=== PATIENT | male | born 1980 | race Caucasian/White ===

== ENCOUNTER 2016-06-30 19:12 | Emergency (ER) | payer MEDICAID ==
[~2016-06-30] VITALS: Ht 185.4 cm; Wt 113.4 kg
[~2016-06-30 19:12] MED LIST: ALBU17AE23 IH; ALBU17AE3 IH; AZIT-21 PO; DOXY-182 PO; DOXY100C2 PO; FLT05NA16 NS; GUAI5LIQ3 PO; HYDR-757 PO; IBUP-1780 PO; MULT-633 PO; NAPR500T3 PO; PANT40TA2 PO; PSEU120T16 PO; TAMS0.4C9 PO
--- NOTE | 2016-06-30 19:26 | ED Upper Extremity ---
General Chief Complaint: General Problems/Pain Stated Complaint: LEFT ARM NUMBNESS Nursing Triage Note: PATIENT REPORTS L ARM/NECK PAIN AND NUMBNESS FOR SEVERAL DAYS, DENIES INJURY OR LOSS OF USE. DENIES TAKING MEDICATION FOR PAIN. 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, BUT DID NOT WORK TODAY--STATES HE DID SOME "MAINTENANCE WORK" TODAY SYMPTOMS ARE NO DIFFERENT TODAY IN ANY WAY HAS NOT TAKEN ANYTHING FOR PAIN AT ANY TIME HAS NOT SOUGHT CARE UNTIL TODAY PCP: MIL Allergies and Home Medications Allergies Coded Allergies: Kaila Known Allergies (Unverified Allergy, Unknown, 04/13/06) Home Medications Cyclobenzaprine HCl 10 Mg Tablet, 10 MG PO Q8H, #15 Prescribed by: GAMA LARSEN on 06/30/161955 Methylprednisolone 4 Mg Tab.ds.pk, 4 MG PO UD, #1 Prescribed by: GAMA LARSEN on 06/30/161955 Constitutional: no symptoms reported EENTM: no symptoms reported Respiratory: no symptoms reported Cardiovascular: no symptoms reported Gastrointestinal: no symptoms reported Genitourinary: no symptoms reported Musculoskeletal: see HPI Skin: no symptoms reported Psychiatric/Neurological: See HPI Past Khkspxz-Ndnjjr-Fahsxx Hx Patient Social History Alcohol Use: Occasionally Uses Recreational Drug Use: Yes (THC) Drug of Choice: PAST HX Smoking Status: Current Everyday Smoker (1 PPD) Type Used: Cigarettes Recent Foreign Travel: No Contact w/Someone Who Travel: No Recent Infectious Disease Expo: No Recent Hopitalizations: No Immunizations Up To Date Tetanus Booster (TDap): Less than 5yrs Date of Influenza Vaccine: Nov 06, 2010 Seasonal Allergies Seasonal Allergies: No Surgeries HX Surgeries: Yes (LEFT INGUINAL HERNIA REPAIR) Surgeries: Abdominal, Appendectomy Respiratory Hx Respiratory Disorders: No Cardiovascular Hx Cardiac Disorders: No Neurological Hx Neurological Disorders: No Reproductive System Hx Reproductive Disorders: No Genitourinary Hx Genitourinary Disorders: No Gastrointestinal Hx Gastrointestinal Disorders: Yes (LEFT INGUINAL HERNIA REPAIR) Musculoskeletal Hx Musculoskeletal Disorders: No Endocrine Hx Endocrine Disorders: No HEENT HX ENT Disorders: No Cancer Hx Cancer: No Psychosocial Hx Psychiatric Problems: Yes Behavioral Health Disorders: Bipolar Integumentary HX Skin/Integumentary Disorder: No Blood Transfusions Hx Blood Disorders: No Physical Exam Vital Signs Vital Sign - Last 12Hours 06/30/16 19:16 Temp 98.2 Pulse 91 Resp 18 B/P (MAP) 126/94 Pulse Ox 95 Capillary Refill : Less Than 3 Seconds General Appearance: WD/WN, no apparent distress, other (FREELY USES LEFT ARM AND HAND) HEENT: PERRL/EOMI, normal ENT inspection, TMs normal, pharynx normal Neck: non-tender, full range of motion, supple, normal inspection Cardiovascular: normal peripheral pulses, regular rate, rhythm, no edema, no JVD, no murmur Respiratory: normal breath sounds, no respiratory distress, no accessory muscle use Gastrointestinal: normal bowel sounds, non tender, soft Back: normal inspection, no CVA tenderness, no vertebral tenderness Shoulder: non-tender, no evidence of injury, normal ROM (STATES PAIN IN LEFT SHOULDER WITH ROM, BUT HAS FULL ROM AND NON-TENDER, NO CLICKING/POPPING OR GRINDING. MILD LEFT TRAPEZIUS MUSCLE TENDERNESS. 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, no motor/sensory deficits, alert, normal mood/affect, oriented x 3, No abnormal cerebellar tests Skin: normal color, warm/dry Progress/Results/Core Measures Results/Orders My Orders Orders - GAMA LARSEN DO Ct Cervical Spine Wo (06/30/16 19:21) Shoulder, Left, 3 Views (06/30/16 19:21) Vital Signs/I&O Vital Sign - Last 12Hours 06/30/16 06/30/16 19:16 20:01 Temp 98.2 Pulse 91 75 Resp 18 18 B/P (MAP) 126/94 Pulse Ox 95 98 Blood Pressure Mean: 105 Diagnostic Imaging Comments XRAY LEFT SHOULDER--NO ACUTE PROCESS CT CERVICAL SPINE--VERY EARLY DEGENERATIVE CHANGES OF C4-C5 AND C5-C6, NO ACUTE PROCESS AND NO CANAL STENOSIS PER RADIOLOGIST REPORTS @ 1948 Reviewed: Reviewed by Me Departure Impression Impression: Primary Impression: Left shoulder pain Additional Impressions: Strain of left trapezius muscle Radicular pain in left arm Disposition: HOME, SELF-CARE Condition: Stable Departure-Patient Inst. Referrals: [facility] (PCP/Family) Primary Care Physician Patient Instructions: Cervical Muscle Strain (DC), Muscle Strain (DC), Muscle and Bone Pain (DC), Radiculopathy (DC) Add. Discharge Instructions: MOIST HEAT TO AREA AT 20 MINUTE INTERVALS FOLLOW UP WITH [facility] NEXT WEEK FOR FURTHER CARE All discharge instructions reviewed with patient and/or family. Voiced understanding. Scripts Cyclobenzaprine HCl (Cyclobenzaprine HCl) 10 Mg Tablet 10 MG PO Q8H, #15 TAB Prov: GAMA LARSEN DO 06/30/16 Methylprednisolone (Medrol) 4 Mg Tab.ds.pk 4 MG PO UD, #1 PKG Prov: GAMA LARSEN DO 06/30/16 GAMA LARSEN DO June 30, 2016 19:26
--- NOTE | 2016-06-30 19:40 | Diagnostic Imaging Report ---
PROCEDURE: CT cervical spine without contrast. TECHNIQUE: Multiple contiguous axial images were obtained through the cervical spine without the use of intravenous contrast. Sagittal and coronal reformations were then performed. INDICATION: Left-sided neck and shoulder pain for five days. COMPARISON: None. DISCUSSION: No acute fracture or subluxation. Alignment is anatomic. Early degenerative disc disease is noted at the C3-C4 and C4-C5 levels. There is no severe central canal or neuroforaminal stenosis identified at any level on this non contrast exam. The visualized paraspinal soft tissues are unremarkable. IMPRESSION: 1. Very early degenerative changes are noted within the cervical spine. No acute osseous abnormality identified. Dictated by: Dictated on workstation # [id number]
--- NOTE | 2016-06-30 19:40 | Diagnostic Imaging Report ---
Indication: Left shoulder pain for 5 days. Discussion: Three views of the left shoulder were obtained, no comparison. No acute fracture, dislocation, or other osseous abnormality identified. No significant degenerative disease. Alignment is anatomic. Soft tissues are unremarkable. Impression: 1. Negative left shoulder. Dictated by: Dictated on workstation # [id number]
[2016-06-30] MEDS ORDERED: METH4TAB PO (19:56)
[2016-06-30] MEDS ORDERED: CYCL10TA9 PO (19:56)
[2016-06-30 20:01] VITALS: BP 124/72
== END 2016-06-30 20:00 | disposition home or self-care (01) ==
LOC: EDUNIT# 19:12 → ER 19:14
DX: S46.812A Strain of other muscles, fascia and tendons at shoulder and upper arm level, left arm, initial encounter (principal); M47.22 Other spondylosis with radiculopathy, cervical region; F17.210 Nicotine dependence, cigarettes, uncomplicated; X58.XXXA Exposure to other specified factors, initial encounter; Y99.8 Other external cause status
CPT/HCPCS: 72125; 73030; 99281

== ENCOUNTER 2016-08-29 20:43 | Emergency (ER) | payer MEDICAID ==
[~2016-08-29] VITALS: Ht 190.5 cm; Wt 113.4 kg
[~2016-08-29 20:43] MED LIST changes: +CYCL10TA9 PO; +METH4TAB PO
[2016-08-29] MEDS ORDERED: NS IV 1000 ML 1,000 ML IV ONE (21:56)
--- NOTE | 2016-08-29 21:56 | ED General ---
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 DENIES N/V, DOES REPORT ONSET DIARRHEA THIS AM. NO OTHER C/O VOICED Nursing Sepsis Screen: No Definite Risk Source of Information: Patient Exam Limitations: No Limitations History of Present Illness Time Seen by Provider: 21:51 Initial Comments Patient reports the ER by private conveyance with chief complaint of feeling dizzy lightheaded and having a little more cough that is nonproductive as well as shortness of breath. He does smoke pack a day. He remarks she is now working in the heat all day. He says she's been drinking plenty of water but felt a little out of it. He has not had any fevers or chills. He does not have any falls or syncope. No chest pain or history of heart disease. No blood pressure problems or diabetes. No thyroid issues. No family who had a heart attack for the age of 40. She is having problems with urinating or rash. He does remark at a tick pulled off of him this morning on the back of his right thigh. Allergies and Home Medications Allergies Coded Allergies: NKANo Known Allergies (Unverified Allergy, Unknown, 04/13/06) Home Medications Cyclobenzaprine HCl 10 Mg Tablet, 10 MG PO Q8H, #15 Prescribed by: GAMA LARSEN on 06/30/161955 Methylprednisolone 4 Mg Tab.ds.pk, 4 MG PO UD, #1 Prescribed by: GAMA LARSEN on 06/30/161955 Constitutional: see HPI, No chills, No diaphoresis, dizziness, No fever, malaise EENTM: No ear pain, No eye pain Respiratory: see HPI, cough, short of breath, No wheezing Cardiovascular: No chest pain, No edema, No Hx of Intervention, No palpitations , No syncope, No vascular heart diseas Gastrointestinal: No abdominal pain, No diarrhea, No nausea Genitourinary: No discharge, No dysuria Skin: No pruritus, No rash Psychiatric/Neurological: Denies Headache, Denies Numbness Past Ocrfoah-Phdjpv-Bokaar Hx Patient Social History Alcohol Use: Denies Use Recreational Drug Use: No Drug of Choice: PAST HX Smoking Status: Current Everyday Smoker Type Used: Cigarettes Recent Foreign Travel: No Contact w/Someone Who Travel: No Recent Infectious Disease Expo: No Recent Hopitalizations: No Immunizations Up To Date Tetanus Booster (TDap): Less than 5yrs Date of Influenza Vaccine: Nov 06, 2010 Seasonal Allergies Seasonal Allergies: No Surgeries HX Surgeries: Yes (LEFT INGUINAL HERNIA REPAIR) Surgeries: Abdominal, Appendectomy, Vasectomy Respiratory Hx Respiratory Disorders: No Cardiovascular Hx Cardiac Disorders: No Neurological Hx Neurological Disorders: No Reproductive System Hx Reproductive Disorders: No Genitourinary Hx Genitourinary Disorders: No Gastrointestinal Hx Gastrointestinal Disorders: Yes (LEFT INGUINAL HERNIA REPAIR) Musculoskeletal Hx Musculoskeletal Disorders: No Endocrine Hx Endocrine Disorders: No HEENT HX ENT Disorders: No Cancer Hx Cancer: No Psychosocial Hx Psychiatric Problems: Yes Behavioral Health Disorders: Bipolar Integumentary HX Skin/Integumentary Disorder: No Blood Transfusions Hx Blood Disorders: No Physical Exam Vital Signs Vital Sign - Last 12Hours 08/29/16 20:51 Temp 98.5 Pulse 92 Resp 20 B/P (MAP) 119/82 Pulse Ox 99 O2 Delivery Room Air Capillary Refill : Less Than 3 Seconds General Appearance: No Apparent Distress, WD/WN Eyes: Bilateral Eye EOMI, Bilateral Eye Normal Inspection, Bilateral Eye PERRL HEENT: PERRL/EOMI, TMs Normal, Pharynx Normal Respiratory: Lungs Clear, Normal Breath Sounds Cardiovascular: Regular Rate, Rhythm, Normal Peripheral Pulses Gastrointestinal: Normal Bowel Sounds, Non Tender, Soft Extremity: Normal Capillary Refill, No Pedal Edema Neurologic/Psychiatric: Alert, Oriented x3, No Motor/Sensory Deficits, human resources advisor II- XII Norm as Tested, Other Skin: Normal Color, Warm/Dry (mildly anxious mood) Progress/Results/Core Measures Results/Orders Lab Results Laboratory Tests Test 08/29/16 22:05 Range/Units White Blood Count 6.8 4.3-11.0 10^3/uL Red Blood Count 5.16 4.35-5.85 10^6/uL Hemoglobin 15.1 13.3-17.7 G/DL Hematocrit 44 40-54 % Mean Corpuscular Volume 85 80-99 FL Mean Corpuscular Hemoglobin 29 25-34 PG Mean Corpuscular Hemoglobin Concent 34 32-36 G/DL Red Cell Distribution Width 13.0 10.0-14.5 % Platelet Count 186 130-400 10^3/uL Mean Platelet Volume 11.7 H 7.4-10.4 FL Neutrophils (%) (Auto) 52 42-75 % Lymphocytes (%) (Auto) 36 12-44 % Monocytes (%) (Auto) 11 0-12 % Eosinophils (%) (Auto) 2 0-10 % Basophils (%) (Auto) 0 0-10 % Neutrophils # (Auto) 3.5 1.8-7.8 X 10^3 Lymphocytes # (Auto) 2.4 1.0-4.0 X 10^3 Monocytes # (Auto) 0.7 0.0-1.0 X 10^3 Eosinophils # (Auto) 0.1 0.0-0.3 10^3/uL Basophils # (Auto) 0.0 0.0-0.1 10^3/uL Sodium Level 140 135-145 MMOL/L Potassium Level 4.2 3.6-5.0 MMOL/L Chloride Level 106 98-107 MMOL/L Carbon Dioxide Level 21 21-32 MMOL/L Anion Gap 13 5-14 MMOL/L Blood Urea Nitrogen 15 7-18 MG/DL Creatinine 1.09 0.60-1.30 MG/DL Estimat Glomerular Filtration Rate > 60 BUN/Creatinine Ratio 14 Glucose Level 88 70-105 MG/DL Calcium Level 9.4 8.5-10.1 MG/DL Total Bilirubin 0.6 0.1-1.0 MG/DL Aspartate Amino Transf (AST/SGOT) 22 5-34 U/L Alanine Aminotransferase (ALT/SGPT) 22 0-55 U/L Alkaline Phosphatase 51 40-136 U/L C-Reactive Protein High Sensitivity 0.36 0.00-0.50 MG/DL Total Protein 7.6 6.4-8.2 GM/DL Albumin 4.5 3.2-4.5 GM/DL My Orders Orders - POLINA ESQUIVEL Cbc With Automated Diff (08/29/16 21:56) Comprehensive Metabolic Panel (08/29/16 21:56) Hs C Reactive Protein (08/29/16 21:56) Chest Pa/Lat (2 View) (08/29/16 21:56) Saline Lock/Iv-Start (08/29/16 21:56) Ns Iv 1000 Ml (Sodium Chloride 0.9%) (08/29/16 21:56) Albuterol/Ipra Inhalation Soln (Duoneb I (08/29/16 22:00) Svn Sm Volume Nebulizer Rt-Rfs (08/29/16 21:56) Medications Given in ED Current Medications Medications Dose Ordered Sig/Pradeep Route Start Time Stop Time Status Last Admin Dose Admin Albuterol/ Ipratropium 3 ml ONCE ONCE INH 08/29/16 22:00 08/29/16 22:01 DC 08/29/16 22:26 3 ML Sodium Chloride 1,000 ml @ 0 mls/hr Q0M ONCE IV 08/29/16 21:56 08/29/16 21:59 DC 08/29/16 22:06 1,000 MLS/HR Vital Signs/I&O Vital Sign - Last 12Hours 08/29/16 08/29/16 20:51 22:26 Temp 98.5 Pulse 92 Resp 20 B/P (MAP) 119/82 Pulse Ox 99 O2 Delivery Room Air Room Air Blood Pressure Mean: 94 Diagnostic Imaging Diagonstic Imaging: Xray Plain Films/CT/US/NM/MRI: chest Comments No acute cardio pulmonary processes noted. Reviewed: Reviewed by Me Departure Impression Impression: Primary Impression: Dehydration Additional Impression: Dizziness Disposition: 01 HOME, SELF-CARE Condition: Improved Departure-Patient Inst. Decision time for Depature: 22:57 Referrals: [facility] (PCP/Family) Primary Care Physician Patient Instructions: Dehydration, Adult (DC) Add. Discharge Instructions: Drink plenty of fluids to include things like half strength Gatorade or water. Take it easy the next day or 2 and try stay indoors as much as possible. Wear long sleeves and a hat to stay out of the sun. If you're not feeling better in the next day or 2 you should follow up with your primary care physician. All discharge instructions reviewed with patient and/or family. Voiced understanding. Copy Copies To 1: CHRISTIAN SEPULVEDA TITUS J Aug 29, 2016 21:56
[2016-08-29] MEDS ORDERED: RT-ALBUTEROL/IPRATROPIUM 3 ML (DUONEB) VIAL INH ONE (22:00)
[2016-08-29 22:10] LABS: BASOPHILS % (AUTO) 0 % (0-10); EOSINOPHILS # (AUTO) 0.1 10^3/uL (0.0-0.3); EOSINOPHILS % (AUTO) 2 % (0-10); LYMPHOCYTES # (AUTO) 2.4 X 10^3 (1.0-4.0); LYMPHOCYTES % (AUTO) 36 % (12-44); MEAN CORPUSCULAR HEMOGLOBIN 29 PG (25-34); MEAN CORPUSCULAR HGB CONC 34 G/DL (32-36); MEAN CORPUSCULAR VOLUME 85 FL (80-99); MEAN PLATELET VOLUME 11.7 FL (7.4-10.4); MONOCYTES # (AUTO) 0.7 X 10^3 (0.0-1.0); MONOCYTES % (AUTO) 11 % (0-12); NEUTROPHILS # (AUTO) 3.5 X 10^3 (1.8-7.8); NEUTROPHILS % (AUTO) 52 % (42-75); PLATELET COUNT 186 10^3/uL (130-400); RED BLOOD COUNT 5.16 10^6/uL (4.35-5.85); WHITE BLOOD COUNT 6.8 10^3/uL (4.3-11.0)
[2016-08-29 22:45] LABS: ALANINE AMINOTRANSFERASE 22 U/L (0-55); ALBUMIN 4.5 GM/DL (3.2-4.5); ANION GAP 13 MMOL/L (5-14); ASPARTATE AMINO TRANSFERASE 22 U/L (5-34); BILIRUBIN,TOTAL 0.6 MG/DL (0.1-1.0); BLOOD UREA NITROGEN 15 MG/DL (7-18); BUN/CREATININE RATIO 14; CALCIUM 9.4 MG/DL (8.5-10.1); CARBON DIOXIDE 21 MMOL/L (21-32); CHLORIDE 106 MMOL/L (98-107); CREATININE SERUM 1.09 MG/DL (0.60-1.30); GFR ESTIMATED > 60; GLUCOSE 88 MG/DL (70-105); POTASSIUM 4.2 MMOL/L (3.6-5.0); SODIUM 140 MMOL/L (135-145); TOTAL PROTEIN 7.6 GM/DL (6.4-8.2); hs C REACTIVE PROTEIN 0.36 MG/DL (0.00-0.50)
[2016-08-29 23:06] VITALS: BP 123/79
--- NOTE | 2016-08-30 08:13 | Diagnostic Imaging Report ---
PA and lateral views of the chest Indication: Shortness of breath Findings: The lungs are clear. The heart size is normal. There is no effusion or pneumothorax The mediastinum and ladan appear unremarkable. Impression: Unremarkable study. Dictated by: Dictated on workstation # [id number]
== END 2016-08-29 23:06 | disposition home or self-care (01) ==
LOC: EDUNIT# 20:43 → ER 20:44
DX: E86.0 Dehydration (principal); F31.9 Bipolar disorder, unspecified; F17.210 Nicotine dependence, cigarettes, uncomplicated; Z98.890 Other specified postprocedural states; Z90.49 Acquired absence of other specified parts of digestive tract; Z98.52 Vasectomy status
CPT/HCPCS: 36415; 71020; 80053; 85025; 86141; 94640; 96360

== ENCOUNTER 2016-10-11 20:58 | Emergency (ER) | payer MEDICAID ==
[~2016-10-11] VITALS: Ht 185.4 cm; Wt 108.9 kg
--- OUTSIDE RECORDS SUMMARY | 2016-10-11 21:05 | XMS REPORT ---
Author Author CHARLEE Haas Organization [facility] Address [address] [place] [address] Care Team Providers Care Speech Lang Path Therapist Name Role Phone CHARLEE Haas Unavailable PROBLEMS Type Condition ICD9-CM Code [id number] Code Onset Dates Condition Status SNOMED Code Problem Abdominal pain, left lower quadrant 789.04 Active 864408708 Problem Seasonal allergic rhinitis due to pollen J30.1 Active 34175954 Problem Bipolar 1 disorder, manic, mild F31.11 Active 46632512 Problem Acute upper respiratory infections of unspecified site 465.9 Active 66113439 Problem Cough 786.2 Active 74759284 Problem Panic disorder F41.0 Active 719113813 Problem Environmental allergies Z91.09 Active 134224748 ALLERGIES Substance Reaction Event Type Date Status N.K.D.A. Unknown Non Drug Allergy Feb, Unknown SOCIAL HISTORY No smoking Hx information available PLAN OF CARE Activity Details Follow Up 4 Weeks Reason: VITAL SIGNS Height 74.2 in 2016-02-19 Weight 256.0 lbs 2016-02-19 Heart Rate 92 bpm 2016-02-19 Respiratory Rate 20 2016-02-19 BMI 32.69 kg/m2 2016-02-19 Blood pressure systolic 120 mmHg 2016-02-19 Blood pressure diastolic 72 mmHg 2016-02-19 MEDICATIONS Medication Instructions Dosage Frequency Start Date End Date Duration Status Saphris 5 mg Sublingual at bedtime 1 tablet under the tongue and allow to dissolve Feb, 30 day(s) Active RESULTS No Results PROCEDURES Procedure Date Ordered Related Diagnosis Body Site MH Office Visit, Est Pt., Level 5 Feb 19, 2016 IMMUNIZATIONS No Known Immunizations
--- OUTSIDE RECORDS SUMMARY | 2016-10-11 21:05 | XMS REPORT ---
Author Author ZULEYMA ELDRIDGE Organization [facility] Address [address] [place] [address] Care Team Providers Care Acupuncturist Name Role Phone ZULEYMA ELDRIDGE Unavailable PROBLEMS Type Condition ICD9-CM Code [id number] Code Onset Dates Condition Status SNOMED Code Problem Abdominal pain, left lower quadrant 789.04 Active 530217824 Problem Seasonal allergic rhinitis due to pollen J30.1 Active 58503313 Problem Bipolar 1 disorder, manic, mild F31.11 Active 65533281 Problem Acute upper respiratory infections of unspecified site 465.9 Active 15753572 Problem Cough 786.2 Active 83897569 Problem Panic disorder F41.0 Active 619520949 Problem Environmental allergies Z91.09 Active 503672922 ALLERGIES No Known Allergies SOCIAL HISTORY No smoking Hx information available PLAN OF CARE Activity Details Follow Up Next available Reason:anxiety VITAL SIGNS MEDICATIONS No Known Medications RESULTS No Results PROCEDURES Procedure Date Ordered Related Diagnosis Body Site Psychotherapy, patient &/family, 30 minutes, established patient Feb 19, 2016 IMMUNIZATIONS No Known Immunizations
--- OUTSIDE RECORDS SUMMARY | 2016-10-11 21:05 | XMS REPORT ---
Author Author ZULEYMA ELDRIDGE Organization [facility] Address [address] [place] [address] Care Team Providers Care Photographer Apprentice Name Role Phone ZULEYMA ELDRIDGE Unavailable PROBLEMS Type Condition ICD9-CM Code [id number] Code Onset Dates Condition Status SNOMED Code Problem Cough 786.2 Active 55977445 Problem Seasonal allergic rhinitis due to pollen J30.1 Active 65155108 Problem Bipolar 1 disorder, manic, mild F31.11 Active 30117291 Problem Abdominal pain, left lower quadrant 789.04 Active 104305272 Problem Acute upper respiratory infections of unspecified site 465.9 Active 37432252 Problem Panic disorder F41.0 Active 737547751 Problem Environmental allergies Z91.09 Active 737157332 ALLERGIES No Known Allergies SOCIAL HISTORY No smoking Hx information available PLAN OF CARE Activity Details Follow Up next available Reason:anxiety VITAL SIGNS MEDICATIONS No Known Medications RESULTS No Results PROCEDURES Procedure Date Ordered Related Diagnosis Body Site Psychotherapy, patient &/family, 45 minutes, established patient Feb 03, 2016 IMMUNIZATIONS No Known Immunizations
--- OUTSIDE RECORDS SUMMARY | 2016-10-11 21:05 | XMS REPORT ---
Author Author BERNICE ANDERS Organization [facility] Address [address] [place] [address] Care Team Providers Care Import/Export Agent Name Role Phone BERNICE ANDERS Unavailable PROBLEMS Type Condition ICD9-CM Code YQU01-DL Code Onset Dates Condition Status SNOMED Code Problem Abdominal pain, left lower quadrant 789.04 Active 619471769 Problem Seasonal allergic rhinitis due to pollen J30.1 Active 72589049 Problem Bipolar 1 disorder, manic, mild F31.11 Active 12522285 Problem Acute upper respiratory infections of unspecified site 465.9 Active 23360064 Problem Cough 786.2 Active 56595876 Problem Panic disorder F41.0 Active 138914245 Problem Environmental allergies Z91.09 Active 621187483 ALLERGIES No Known Allergies SOCIAL HISTORY No smoking Hx information available PLAN OF CARE Activity Details Follow Up prn Reason: VITAL SIGNS MEDICATIONS No Known Medications RESULTS No Results PROCEDURES Procedure Date Ordered Related Diagnosis Body Site ALCOHOL AND/OR DRUG ASSESSMENT Feb 03, 2016 IMMUNIZATIONS No Known Immunizations
--- OUTSIDE RECORDS SUMMARY | 2016-10-11 21:06 | XMS REPORT ---
Author Author MARTINEZ RASMUSSEN [facility] Address [address] [place] [address] Care Team Providers Care Supervisor Post Wave Name Role Phone MARTINEZ RASMUSSEN Unavailable PROBLEMS Type Condition ICD9-CM Code NEM55-RC Code Onset Dates Condition Status SNOMED Code Problem Cough 786.2 Active 97965472 Problem Seasonal allergic rhinitis due to pollen J30.1 Active 08315670 Problem Bipolar 1 disorder, manic, mild F31.11 Active 36181546 Problem Abdominal pain, left lower quadrant 789.04 Active 035557695 Problem Acute upper respiratory infections of unspecified site 465.9 Active 86764416 Problem Panic disorder F41.0 Active 306042122 Problem Environmental allergies Z91.09 Active 086215471 ALLERGIES Substance Reaction Event Type Date Status N.K.D.A. Unknown Non Drug Allergy Jan, Unknown SOCIAL HISTORY No smoking Hx information available PLAN OF CARE VITAL SIGNS Height 75 in 2016-01-25 Weight 250.9 lbs 2016-01-25 Temperature 97.9 degrees Fahrenheit 2016-01-25 Heart Rate 80 bpm 2016-01-25 Respiratory Rate 18 2016-01-25 BMI 31.36 kg/m2 2016-01-25 Blood pressure systolic 132 mmHg 2016-01-25 Blood pressure diastolic 92 mmHg 2016-01-25 MEDICATIONS Medication Instructions Dosage Frequency Start Date End Date Duration Status Nicoderm CQ 21 MG/24HR Transdermal Once a day 1 patch to skin 24h Jan, Feb, 30 day(s) Active RESULTS No Results PROCEDURES Procedure Date Ordered Related Diagnosis Body Site Office Visit, Est Pt., Level 3 Jan 25, 2016 IMMUNIZATIONS No Known Immunizations
[2016-10-11] MEDS ORDERED: CYCL5TAB PO (22:53)
[2016-10-11] MEDS ORDERED: PRD20T PO (22:53)
--- NOTE | 2016-10-11 22:53 | ED Upper Extremity ---
General Chief Complaint: Upper Extremity Stated Complaint: LT ARM/FACE NUMBNESS Nursing Triage Note: c/o L arm pain and numbness that radiates down from his neck, patient reports having same problem and being evaluated here previously Nursing Sepsis Screen: No Definite Risk Source: patient Exam Limitations: no limitations History of Present Illness Time seen by provider: 22:50 Initial Comments To ER with pain down his left neck and down his left arm terminating in the fingertips. This is a shooting tingling pain that occasionally gets very bad. He's had this before but this particular episode started just a few hours ago while he was grocery shopping. Onset: this evening Severity: moderate Pain/Injury Location: left other (neck) Modifying Factors: Worse With Movement Allergies and Home Medications Allergies Coded Allergies: ADAMSANo Known Allergies (Unverified Allergy, Unknown, 04/13/06) Home Medications Cyclobenzaprine HCl 10 Mg Tablet, 10 MG PO Q8H, #15 Prescribed by: GAMA LARSEN on 06/30/161955 Methylprednisolone 4 Mg Tab.ds.pk, 4 MG PO UD, #1 Prescribed by: GAMA LARSEN on 06/30/161955 Constitutional: see HPI EENTM: see HPI Respiratory: no symptoms reported Cardiovascular: no symptoms reported Genitourinary: no symptoms reported Musculoskeletal: see HPI Skin: no symptoms reported Psychiatric/Neurological: No Symptoms Reported Past Tpgqgtn-Rkljpf-Yhfpzl Hx Patient Social History Alcohol Use: Denies Use Recreational Drug Use: No Drug of Choice: PAST HX Type Used: Electronic/Vapor Recent Foreign Travel: No Contact w/Someone Who Travel: No Recent Infectious Disease Expo: No Recent Hopitalizations: No Immunizations Up To Date Tetanus Booster (TDap): Less than 5yrs Date of Influenza Vaccine: Nov 06, 2010 Seasonal Allergies Seasonal Allergies: No Surgeries History of Surgeries: Yes (LEFT INGUINAL HERNIA REPAIR) Surgeries: Abdominal, Appendectomy, Vasectomy Respiratory History of Respiratory Disorde: No Cardiovascular History of Cardiac Disorders: No Neurological History of Neurological Disord: No Reproductive System Hx Reproductive Disorders: No Gastrointestinal History of Gastrointestinal Di: No Musculoskeletal History of Musculoskeletal Dis: No Endocrine History of Endocrine Disorders: No Cancer History of Cancer: No Psychosocial History of Psychiatric Problem: Yes Behavioral Health Disorders: Bipolar Integumentary History of Skin or Integumenta: No Blood Transfusions History of Blood Disorders: No Physical Exam Vital Signs Vital Sign - Last 12Hours 10/11/16 22:41 Temp 98.2 Pulse 72 Resp 18 B/P (MAP) 100/77 Pulse Ox 99 Capillary Refill : Less Than 3 Seconds General Appearance: WD/WN, no apparent distress HEENT: PERRL/EOMI, normal ENT inspection Neck: non-tender, full range of motion Respiratory: normal breath sounds, no respiratory distress, no accessory muscle use Gastrointestinal: normal bowel sounds, non tender, soft Shoulder: normal inspection, non-tender Elbow/Forearm: normal inspection, non-tender, Left Wrist: Yes normal inspection, Yes non-tender Neurologic/Tendon: normal sensation, normal motor functions, normal tendon functions Neurologic/Psychiatric: alert, normal mood/affect, oriented x 3 Skin: normal color, warm/dry Progress/Results/Core Measures Results/Orders My Orders Orders - AMANDA LACEY APRN Hydrocodone/Apap 5/325 Tablet (Lortab 5 (10/11/16 23:00) Vital Signs/I&O Vital Sign - Last 12Hours 10/11/16 22:41 Temp 98.2 Pulse 72 Resp 18 B/P (MAP) 100/77 Pulse Ox 99 Blood Pressure Mean: 85 Departure Impression Impression: Primary Impression: Cervical radiculopathy Disposition: 01 HOME, SELF-CARE Condition: Stable Departure-Patient Inst. Decision time for Depature: 22:51 Referrals: [facility] (PCP/Family) Primary Care Physician Patient Instructions: Radiculopathy Add. Discharge Instructions: 1. This is most likely a bulging disc in the neck. Follow-up with your regular doctor later this week or next week for further evaluation. Take steroids and muscle relaxers as directed All discharge instructions reviewed with patient and/or family. Voiced understanding. Scripts Prednisone (Prednisone) 20 Mg Tab 40 MG PO DAILY, #8 TAB Prov: AMANDA LACEY APRN 10/11/16 Cyclobenzaprine HCl (Cyclobenzaprine HCl) 5 Mg Tablet 5 MG PO TID Y for PAIN-MODERATE, #30 TAB Prov: AMANDA LACEY APRN 10/11/16 AMANDA LACEY APRN Oct 11, 2016 22:53
[2016-10-11 23:00] VITALS: BP 100/77
[2016-10-11] MEDS ORDERED: HYDROcodone/APAP 5 MG/325 MG (LORTAB) TAB PO ONE (23:00)
== END 2016-10-11 22:59 | disposition home or self-care (01) ==
LOC: EDUNIT# 20:58 → ER 21:00
DX: M54.12 Radiculopathy, cervical region (principal); F31.9 Bipolar disorder, unspecified; Z90.49 Acquired absence of other specified parts of digestive tract; Z98.52 Vasectomy status
CPT/HCPCS: 99283

== ENCOUNTER 2019-04-07 19:10 | Emergency (ER) | payer MEDICAID ==
[~2019-04-07] VITALS: Ht 190.5 cm; Wt 137.4 kg
[~2019-04-07 19:10] MED LIST changes: +CYCL5TAB PO; +NAPR-915 PO; -NAPR500T3 PO; +PRD20T PO
--- NOTE | 2019-04-07 20:05 | ED Lower Extremity ---
General Chief Complaint: Lower Extremity Stated Complaint: R FOOT PAIN Nursing Triage Note: AMBULATORY TO ROOM 8 WITH C/O RIGHT ANKLE PAIN AND SWELLING. STATES HE WAS HIKING YESTERDAY AND FELL AND THOUGHT HE HEARD A TREE BRANCH SNAP, BUT STATES "I THINK IT MAY HAVE BEEN MY ANKLE NOW AND NOT A BRANCH NOW THAT MY ANKLE IS SWOLLEN". DENIES LOC, DENIES ANY OTHER INJURIES. 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 Nursing Sepsis Screen: No Definite Risk (ARMEN GARAY) History of Present Illness Date Seen by Provider: Apr 07, 2019 Time Seen by Provider: 19:00 Initial Comments This is a 39 y/o male who presents to the ED w/ R foot pain which onset yesterday while he was hiking. States he was walking his 's and daughter's bike when he lost his balance and fell with his right foot getting wedged in between the two bikes. Denies rolling his ankle. He does have mild swelling over right ankle; reports he does get spontaneous swelling in R ankle intermittently but that this time it is worse. Denies any tenderness over medial or later malleoli, or over lateral foot. States the pain is mainly focused over R great toe and is exacerbated by wt bearing; he admits he is able to take 4 steps w/o assistance but that it's very painful. Rates his pain 3/10 when sitting and 6/10 with wt bearing. Reports he hikes regularly, hiked for 1.5hrs yesterday which is normal for him; denies any recent change in his footwear. Denies any other sx. Denies any known PMH or taking any medications. Onset: yesterday Severity: moderate Pain/Injury Location: right foot Method of Injury: fell Modifying Factors: Improves With Immobilization, Improves With Movement, Improves With Rest, Improves With Other (wt bearing) (ARMEN GARAY) Allergies and Home Medications Allergies Coded Allergies: NKANo Known Allergies (Unverified Allergy, Unknown, 04/13/06) Home Medications Cyclobenzaprine HCl 10 Mg Tablet, 10 MG PO Q8H Prescribed by: GAMA LARSEN on 06/30/161955 Cyclobenzaprine HCl 5 Mg Tablet, 5 MG PO TID PRN for PAIN-MODERATE Prescribed by: AMANDA LACEY on 10/11/162252 Methylprednisolone 4 Mg Tab.ds.pk, 4 MG PO UD Prescribed by: GAMA LARSEN on 06/30/161955 Prednisone 20 Mg Tab, 40 MG PO DAILY Prescribed by: AMANDA LACEY on 10/11/162252 Patient Home Medication List Home Medication List Reviewed: Yes (THERESA BERMUDEZ) Review of Systems Constitutional: No chills, No fever EENTM: no symptoms reported Respiratory: no symptoms reported Cardiovascular: no symptoms reported Gastrointestinal: no symptoms reported Musculoskeletal: No back pain; other (R foot pain, mild R ankle swelling) Skin: No lesions, No pruritus, No rash (VIVIAN GARAY [facility]) All Other Systems Reviewed Negative Unless Noted: Yes (THERESA BERMUDEZ) Past Ebyumfm-Rftkge-Srkkbe Hx Past Med/Social Hx: Reviewed Nursing Past Med/Soc Hx (THERESA BERMUDEZ) Patient Social History Alcohol Use: Regular Use Number of Drinks Today: 0 Alcohol Beverage of Choice: Beer Recreational Drug Use: No Drug of Choice: PAST HX Type Used: Electronic/Vapor Recent Foreign Travel: No Contact w/Someone Who Travel: No Recent Infectious Disease Expo: No Recent Hopitalizations: No Physical Abuse: No Sexual Abuse: No Mistreated: No Fear: No (LIONEL GARAYZINA [facility]) Immunizations Up To Date Tetanus Booster (TDap): Less than 5yrs Date of Influenza Vaccine: Nov 06, 2010 (LIONEL GARAYZINA [facility]) Seasonal Allergies Seasonal Allergies: No (LIONEL GARAYZINA [facility]) Past Medical History Surgeries: Yes (LEFT INGUINAL HERNIA REPAIR) Abdominal, Appendectomy, Vasectomy Respiratory: No Cardiac: No Neurological: No Reproductive Disorders: No Genitourinary: No Gastrointestinal: No Musculoskeletal: No Endocrine: No HEENT: No Cancer: No Psychosocial: Yes Bipolar Integumentary: No Blood Disorders: No (LIONEL GARAYZINA [facility]) Physical Exam Vital Signs Vital Signs - First Documented 04/07/19 19:33 Temp 37.1 Pulse 106 Resp 20 B/P (MAP) 142/99 (113) (THERESA BERMUDEZ) Vital Signs Capillary Refill : Less Than 3 Seconds (LIONEL GARAYZINA [facility]) Height, Weight, BMI Height: 6'1.00" Weight: 240lbs. 0oz. 108.557560se; 37.00 BMI Method:Stated General Appearance: WD/WN, no apparent distress Neck: non-tender, full range of motion, supple, normal inspection Cardiovascular: regular rate, rhythm, no edema, no gallop, no JVD, no murmur Respiratory: chest non-tender, lungs clear, normal breath sounds, no respiratory distress, no accessory muscle use Back: normal inspection, no vertebral tenderness Knees: bilateral knee non-tender Ankles: bilateral ankle non-tender, bilateral ankle normal inspection, bilateral ankle normal range of motion, bilateral ankle no evidence of injury; right ankle swelling (trace) Feet: left foot non-tender; bilateral foot normal inspection; left foot normal range of motion; bilateral foot no evidence of injury; right foot limited range of motion (decreased ROM of R great toe 2/2 pain), right foot other (No tenderness or ecchymosis over proximal 5th metatarsal or medial or lateral m alleoli; does report pain in R great toe w/ palpation of centeral, plantar aspect of calcaneous ) Reflexes: 2+ knee (R), 2+ knee (L), 2+ ankle (R), 2+ ankle (L) Neurologic/Tendon: normal sensation, normal motor functions, normal tendon functions, responds to pain, no evidence tendon injury Neurologic/Psychiatric: no motor/sensory deficits, alert, normal mood/affect, oriented x 3 Skin: normal color, warm/dry Lymphatic: no adenopathy (ARMEN GARAY) Feet: right foot pain (first MTP) (THERESA BERMUDEZ) Progress/Results/Core Measures Results/Orders My Orders Orders - THERESA BERMUDEZ Foot, Right, 3 View (04/07/19 20:01) Ankle, Right, 3 Views (04/07/19 20:01) (THERESA BERMUDEZ) Vital Signs/I&O 04/07/19 19:33 Temp 37.1 Pulse 106 Resp 20 B/P (MAP) 142/99 (113) (THERESA BERMUDEZ) Blood Pressure Mean: 113 Progress Progress Note : Time: 19:00 Progress Note Seen and evaluated. Ddx include plantar fasciitis, Stress fx, sprain/strain. Will order XR of R foot and ankle to r/u any possible Fx. (ARMEN GARAY [facility]) Progress Note : Progress Note 2030 x-ray results reviewed, no acute findings. 4 inch Eagle wrap applied. Disc harge instructions and return precautions reviewed with the patient. (THERESA BERMUDEZ) Diagnostic Imaging Diagonstic Imaging: Xray Plain Films/CT/US/NM/MRI: ankle Comments NAME: KARINA ARSHAD [facility] REC#: [id number] PT STATUS: REG ER : 1980 PHYSICIAN: THERESA BERMUDEZ ADMIT DATE: 04/07/19/ER Signed Date of Exam:04/07/19 ANKLE, RIGHT, 3 VIEWS INDICATION: Right ankle pain after trauma. COMPARISON: Right foot radiographs performed concurrently. TECHNIQUE: Three views of the right ankle were obtained. FINDINGS: No acute fracture or traumatic malalignment. Well-corticated ossicle along the tip of the lateral malleolus is chronic in nature. No osteochondral lesion of the talar dome. No osseous tarsal coalition. IMPRESSION: No acute fracture about the right ankle. Dictated by: Dictated on workstation # [id number] Dict: 04/07/192019 Trans: 04/07/192025 [facility] [id number] Interpreted by: CUATE BALLESTEROS MD Electronically signed by: CUATE BALLESTEROS MD 04/07/192025 Reviewed: Reviewed by Me Diagonstic Imaging: Xray Plain Films/CT/US/NM/MRI: other (foot) Comments NAME: KARINA ARSHAD [facility] REC#: [id number] PT STATUS: REG ER : 1980 PHYSICIAN: THERESA BERMUDEZ ADMIT DATE: 04/07/19/ER Signed Date of Exam:04/07/19 FOOT, RIGHT, 3 VIEW INDICATION: Right foot pain after fall. COMPARISON: None available. TECHNIQUE: Three nonweightbearing views of the right foot were obtained. FINDINGS: There is focal cortical irregularity involving the base of the 5th metatarsal; however, no appreciable fracture line is seen. No other abnormality within the right foot that would suggest fracture. No osseous tarsal coalition. No osseous erosions. IMPRESSION: 1. Focal irregularity in the base of the 5th metatarsal could represent a nondisplaced fracture versus a physiologic groove in the cortex. Correlation for tenderness at the base of the 5th metatarsal is advised. 2. Otherwise, no fracture. Dictated by: Dictated on workstation # [id number] Dict: 04/07/192016 Trans: 04/07/192025 [facility] [id number] Interpreted by: CUATE BALLESTEROS MD Electronically signed by: CUATE BALLESTEROS MD 04/07/192025 Reviewed: Reviewed by Me (THERESA BERMUDEZ) Departure Impression Primary Impression: Sprain of foot, right Qualified Codes: S93.601A - Unspecified sprain of right foot, initial encounter Disposition: HOME, SELF-CARE Condition: Improved Departure-Patient Inst. Decision time for Depature: 20:35 (THERESA BERMUDEZ) Referrals: [facility] [place] ([place]/Family) Primary Care Physician Patient Instructions: Sprain (DC) Add. Discharge Instructions: Ice and elevate right foot for 20 minutes every 2 hours. Alternate between ibuprofen 600 mg and Tylenol 650 mg every 4 hours for pain or swelling. Activity as tolerated. Use Eagle wrap for the next 2 weeks. Follow-up with your primary care provider if symptoms are not improving or worsen. Return to the emergency department for new, urgent health care needs. All discharge instructions reviewed with patient and/or family. Voiced understanding. Patient seen and evaluated by medical student and this provider. All documentation reviewed and agreed with. (THERESA BERMUDEZ) ARMEN GARAY [facility] Apr 07, 2019 20:05 THERESA BERMUDEZ Apr 07, 2019 20:37
--- NOTE | 2019-04-07 20:23 | Diagnostic Imaging Report ---
INDICATION: Right foot pain after fall. COMPARISON: None available. TECHNIQUE: Three nonweightbearing views of the right foot were obtained. FINDINGS: There is focal cortical irregularity involving the base of the 5th metatarsal; however, no appreciable fracture line is seen. No other abnormality within the right foot that would suggest fracture. No osseous tarsal coalition. No osseous erosions. IMPRESSION: 1. Focal irregularity in the base of the 5th metatarsal could represent a nondisplaced fracture versus a physiologic groove in the cortex. Correlation for tenderness at the base of the 5th metatarsal is advised. 2. Otherwise, no fracture. Dictated by: Dictated on workstation # [id number]
--- NOTE | 2019-04-07 20:23 | Diagnostic Imaging Report ---
INDICATION: Right ankle pain after trauma. COMPARISON: Right foot radiographs performed concurrently. TECHNIQUE: Three views of the right ankle were obtained. FINDINGS: No acute fracture or traumatic malalignment. Well-corticated ossicle along the tip of the lateral malleolus is chronic in nature. No osteochondral lesion of the talar dome. No osseous tarsal coalition. IMPRESSION: No acute fracture about the right ankle. Dictated by: Dictated on workstation # [id number]
[2019-04-07 20:45] VITALS: BP 142/99
== END 2019-04-07 20:45 | disposition home or self-care (01) ==
LOC: EDUNIT# 19:10 → ER 19:11
DX: S93.601A Unspecified sprain of right foot, initial encounter (principal); Z79.52 Long term (current) use of systemic steroids; W18.39XA Other fall on same level, initial encounter; W23.1XXA Caught, crushed, jammed, or pinched between stationary objects, initial encounter
CPT/HCPCS: 73610; 73630